=== PATIENT | male | born 2000 | race Caucasian/White ===

== ENCOUNTER 2025-01-30 21:09 | Emergency (ER) | payer BC, SELFPAY ==
[2025-01-30] MEDS ORDERED: Rabies Immune Globulin/PF 300 UNITS/ML VIAL ONE (22:15)
[2025-01-30] MEDS ORDERED: Rabies Vaccine Human 2.5 UNITS VIAL ONE (22:15)
[2025-01-30] MEDS ORDERED: Amoxicillin/Potassium Clav 875 MG TAB ONE (22:46)
== END 2025-01-30 23:38 | disposition home or self-care (01) ==
LOC: ERS 21:09
DX: S61.254A Open bite of right ring finger without damage to nail, initial encounter (principal); S61.214A Laceration without foreign body of right ring finger without damage to nail, initial encounter; I10 Essential (primary) hypertension; W54.0XXA Bitten by dog, initial encounter; Z23 Encounter for immunization
CPT/HCPCS: 90375; 90471; 90675

== ENCOUNTER → 2025-02-06 | Day surgery (SDC) | payer SELFPAY ==
[~2025-02-06] MED LIST: Rabies Vaccine Human 2.5 UNITS VIAL ONE
== END ==
LOC: ER/OP 21:26
PROVIDERS: ATTEND Pathology Anatomic Pathology & Clinical Pathology
DX: Z29.14 Encounter for prophylactic rabies immune globulin (principal)
CPT/HCPCS: 90675

== ENCOUNTER → 2025-02-18 | Day surgery (SDC) | payer SELFPAY | LOC: ER/OP 19:31 | PROVIDERS: ATTEND Pathology Anatomic Pathology & Clinical Pathology | DX: Z29.14 Encounter for prophylactic rabies immune globulin (principal) | CPT/HCPCS: 90471; 90675 ==